=== PATIENT | male | born 2005 | race Caucasian/White ===

== ENCOUNTER 2024-06-26 00:26 | Emergency (ER) | payer MEDICAID, OTHER ==
[~2024-06-26 00:26] MED LIST: Naloxone 2 MG/2 ML Syringe ONE
[2024-06-26] MEDS: Amiodarone 150 MG/100 ML 100 ML IV ONE (00:33)
[2024-06-26] MEDS ORDERED: Amiodarone 150 MG/100 ML 100 ML IV ONE (00:36)
[2024-06-26 00:44] LABS: BASOPHILS ABSOLUTE AUTO 0.1 K/mm3 (0.0-0.3); BASOPHILS PERCENT AUTO 0.5 % (0.0-1.0); EOSINOPHILS ABSOLUTE AUTO 0.3 K/mm3 (0.0-0.7); EOSINOPHILS PERCENT AUTO 1.9 % (0.0-5.0); HEMATOCRIT 47.9 % (42.0-52.0); HEMOGLOBIN 14.7 gm/dl (14.0-18.0); IMMATURE GRAN ABSOLUTE AUTO 1.18 K/mm3 (0.00-0.05); IMMATURE GRAN PERCENT AUTO 9.2 % (0.0-0.4); LYMPHOCYTES ABSOLUTE AUTO 6.8 K/mm3 (2.0-8.8); LYMPHOCYTES PERCENT AUTO 52.6 % (50.0-65.0); MEAN CORPUSCULAR HEMOGLOBIN 29.6 pg (28.0-32.0); MEAN CORPUSCULAR HGB CONC 30.7 g/dl (32.0-36.0); MEAN CORPUSCULAR VOLUME 96.4 fl (83.0-99.0); MEAN PLATELET VOLUME 11.2 fl (9.4-12.4); MONOCYTES ABSOLUTE AUTO 0.8 K/mm3 (0.1-1.4); MONOCYTES PERCENT AUTO 6.2 % (2.0-10.0); NEUTROPHILS ABSOLUTE AUTO 3.8 K/mm3 (1.5-8.5); NEUTROPHILS PERCENT AUTO 29.6 % (35.0-45.0); NRBC ABSOLUTE 0.11 (0.00-0.03); NRBC PERCENT 0.9 % (0.0-0.2); PLATELET COUNT,PLT 191 K/mm3 (150-400); RED BLOOD CELL COUNT 4.97 M/mm3 (4.52-5.90); WHITE BLOOD CELL COUNT,WBC 12.88 K/mm3 (4.5-13.5)
[2024-06-26] MEDS: EPINEPHrine 1 MG in Dextrose 5% in Water 99 ML IV SCH ×2 (00:54→01:27)
[2024-06-26 01:00] LABS: INR 1.83; PROTHROMBIN TIME 18.6 SECONDS (9.7-12.0)
[2024-06-26] MEDS ORDERED: EPINEPHrine 1:10,000 1 MG/10 ML Syringe ONE ×10 (01:00)
[2024-06-26] MEDS ORDERED: Atropine 0.1 MG/ML 10 ML Syringe ONE (01:00)
[2024-06-26] MEDS ORDERED: Calcium Chloride 10% 1 GM/10 ML Syringe ONE (01:00)
[2024-06-26] MEDS ORDERED: Sodium Bicarbonate 8.4% 50 MEQ/50 ML Syringe ONE ×3 (01:00)
[2024-06-26 01:07] LABS: ALANINE AMINOTRANSFERASE,ALT 111 U/L (16-63); ALBUMIN 3.7 g/dl (3.4-5.0); ALKALINE PHOSPHATASE 159 U/L (46-116); ANION GAP 27.8 (5-15); BILIRUBIN TOTAL 0.6 mg/dL (0.2-1.0); BLOOD UREA NITROGEN,BUN 12 mg/dL (7-18); BUN/CREATININE RATIO 7.5 (14-18); CALCIUM 9.6 mg/dL (8.5-10.1); CARBON DIOXIDE,CO2 19 mEq/L (21-32); CHLORIDE,CL 100 mEq/L (98-107); CREATININE 1.6 mg/dL (0.7-1.3); ESTIMATED GFR 63 mL/min (>60); GLUCOSE RANDOM 332 mg/dL (70-99); PROTEIN TOTAL,TP 7.3 g/dl (6.4-8.2); SODIUM,NA 144 mEq/L (136-145)
[2024-06-26 01:22] LABS: PTT,PARTIAL THROMBOPLSTIN TIME 123.3 SECONDS (21.7-31.4)
[2024-06-26 01:24] LABS: TROPONIN I HIGH SENSITIVITY 144 pg/mL (<=76)
[2024-06-26 01:26] LABS: POTASSIUM,K 2.8 mEq/L (3.5-5.1)
[2024-06-26 01:27] LABS: ASPARTATE AMNIOTRANSFERASE,AST 101 U/L (15-37)
[2024-06-26 01:38] LABS: SLIDE REVIEW ABNORMAL SMEAR
[2024-06-26] MEDS: Potassium Chloride 10 MEQ in Premix Bag 1 BAG IV SCH (01:55)
[2024-06-26 01:58] LABS: BASE EXCESS ARTERIAL -20.3 (-2-2.0); BICARBONATE,ARTERIAL 16.1 meq/L (22.0-26.0); O2 SATURATION ARTERIAL 71.4 % (96.0-97.0); PCO2 ARTERIAL 96.7 mmHg (35.0-45.0)
[2024-06-26] MEDS: Sodium Bicarbonate 8.4% 50 MEQ/50 ML Syringe IVPUSH ONE (02:06)
[2024-06-26] MEDS: Pantoprazole 40 MG Vial IVPUSH ONE (02:12)
[2024-06-26] MEDS: Sodium Chloride 0.9% 100 ML ONE (02:27)
[2024-06-26] MEDS ORDERED: Amiodarone 360 MG/200 ML 360 MG/200 ML BAG IV SCH (05:30)
== END 2024-06-26 03:40 ==
LOC: JD.ED 00:26
DX: I46.9 Cardiac arrest, cause unspecified (principal); E87.6 Hypokalemia
CPT/HCPCS: 36415; 36600; 51702; 71045; 80053; 80307; 82803; 83605; 84484; 85025; 85610; 85730; 92950; 93005; 96365; 96366; 96368; 96375; 99291; 99292; J0171; J0282; J0461; J2470; J3480; J7030; J7060; 93010; 99285; J3490